=== PATIENT | female | born 1950 | race Caucasian/White ===

== ENCOUNTER → 2016-08-23 | Outpatient (CLI) | payer OTHER ==
[~2016-08-23] MED LIST: BENADRYL; CRESTOR; FISH OIL 1,001000 M1 PO; HYDROCHLOROTHIA25 MG PO; LIPITOR20 MG PO; MULTIPLE VITAMI1 T11 PO; TAMOXIFEN10 MG PO; VICODIN 5/500 T1 TAB PO; VITAMIN B 12 PO; VITAMIN D31000 UNI1 PO; ZOCOR PO
--- NOTE | ~2016-08-23 | BD1 ---
[facility] A Service of [facility] & [facility] RADIOLOGY TEXT RESULTS PATIENT: LIZANDRO GREGORY LOCATION: [facility] : 54 UNIT #: [id number] AGE: [address]: RAUL TIERNEY MD SEX: F ORDER DR: [id number] [facility] [address] [place], [place] [address] [id number] O MR#: [id number] Acc #: [id number] NAME: LIZANDRO GREGORY : 1950 SEX: F STUDY DATE/TIME: 08/23/2016 10:04 UNIT: [facility] ROOM: STUDY DESCRIPTION: BD Dexa Bone Dens 1+ Site Attending Physician: Raul Tierney M.D. Ordering Physician: Raul Tierney M.D. Primary Care Physician: Ronak Ledbetter D.O. MEDICAL IMAGING REPORT This report is preliminary unless electronic signature is present EXAM DXA scan 08/23/2016. HISTORY Status post menopause with no hormone replacement therapy. Osteopenia. Breast carcinoma and radiation therapy. FINDINGS Bone mineral density in the lumbar spine from L1-L4 was 0.84 g/cm2 which is 1.5 standard deviations below the mean when compared to the young adult reference population which is characteristic of osteopenia. This is 0.2 standard deviations above the mean when compared to the age-matched population. Compared with 08/09/2014, there has been an increase in bone mineral density in the lumbar spine of 2.5%. Bone mineral density in the left femoral neck was 0.668 g/cm2 which is 1.6 standard deviations below the mean when compared to the young adult reference population which is characteristic of osteopenia. This is 0.1 standard deviations below the mean when compared to the age-matched population. Compared with 08/09/2014, there has been and a decrease in bone mineral density in the left hip of 5.3%. IMPRESSION Bone mineral density in the lumbar spine and the left hip characteristic of osteopenia. Compared with 08/09/2014, there has been an increase in bone mineral density in the lumbar spine and a decrease in bone mineral density in the left hip. Dictated by... Vignesh Wilson M.D. THIS IS AN ELECTRONICALLY VERIFIED REPORT Vignesh Wilson M.D. at 08/23/2016 5:35 PM KRT/bd [facility] A Service of [facility] & [facility] RADIOLOGY TEXT RESULTS PATIENT: LIZANDRO GREGORY LOCATION: [facility] : 54 UNIT #: [id number] AGE: [address]: RAUL TIERNEY MD SEX: F ORDER DR: TD: 08/23/2016 12:53 JOB #: [id number] MEDICAL IMAGING REPORT Page 1 of 1 COPY
== END | disposition home or self-care (01) ==
LOC: CWCC 06-06 09:30
DX: C50.411 Malignant neoplasm of upper-outer quadrant of right female breast (principal); M85.89 Other specified disorders of bone density and structure, multiple sites
CPT/HCPCS: 77080